=== PATIENT | male | born 1975 | race Two or more races ===

== ENCOUNTER 2025-02-04 22:04 | Emergency (ER) | payer OTHER ==
[~2025-02-04] VITALS: Ht 182.9 cm; Wt 88.5 kg
[2025-02-05] MEDS ORDERED: 0.9 % SODIUM CHLORIDE 100 ML IV ONE (00:30)
[2025-02-05] MEDS ORDERED: FAMOTIDINE/PF 20 MG/2 ML VIAL IV ONE (00:30)
[2025-02-05] MEDS ORDERED: ONDANSETRON HCL 2 MG/ML VIAL IV ONE (00:30)
[2025-02-05] MEDS ORDERED: ONDANSETRON HCL 2 MG/ML VIAL ONE (00:37)
[2025-02-05] MEDS ORDERED: FAMOTIDINE/PF 20 MG/2 ML VIAL ONE (00:37)
[2025-02-05 01:58] LABS: BASO % 0.6 % (0.1-1.2); EOS # 0.22 (0.04-0.54); EOS % 1.3 % (0.7-7.0); LYMPH # 3.05 (1.18-3.74); LYMPH % 17.8 % (19.3-53.1); MEAN PLATELET VOLUME 9.20 fl (9.4-12.4); MONO # 1.32 (0.24-0.82); MONO % 7.7 % (4.7-12.5); NEUT # 12.22 (1.56-6.13); NEUT % 71.5 % (34.0-71.1); RED CELL DISTRIBUTION WIDTH 12.2 % (11.6-14.4)
[2025-02-05 02:11] LABS: BUN CREA RATIO 19.0 (7.0-25.0); CREATININE SERUM 1.11 mg/dL (0.70-1.30); GFR 70.41; GLUCOSE FASTING 103.0 mg/dL (65-100); OSMOLALITY SERUM 283.0 MOSM/KG (275-295)
[2025-02-05] MEDS ORDERED: CEFTRIAXONE SODIUM 2,000 MG VIAL IV STA (03:23)
[2025-02-05] MEDS ORDERED: CEFTRIAXONE SODIUM 2,000 MG VIAL ONE (04:00)
== END 2025-02-05 04:48 | disposition home or self-care (01) ==
LOC: ER 22:04
PROVIDERS: General Practice
DX: E86.0 Dehydration (principal); Z88.8 Allergy status to other drugs, medicaments and biological substances; R55 Syncope and collapse